=== PATIENT | male | born 1960 | race Caucasian/White ===

== ENCOUNTER 2020-06-14 07:25 | Day surgery (SDC) | payer OTHER ==
[~2020-06-14] VITALS: Ht 180.3 cm; Wt 139.1 kg
[2020-06-14] MEDS ORDERED: SODIUM CHLORIDE 0.9% 1,000 ML ONE (07:35)
[2020-06-14] MEDS ORDERED: SODIUM CHLORIDE 0.9% 1,000 ML IV ONE (09:30)
[2020-06-14] MEDS ORDERED: IOHEXOL 300 MG/ML 50 ML VIAL ONE ×2 (11:05→11:47)
[2020-06-14] MEDS ORDERED: LIDOCAINE/PF 1% 30 ML VIAL ONE (11:05)
[2020-06-14] MEDS ORDERED: SODIUM BICARBONATE 50 MEQ/50 ML VIAL ONE (11:05)
[2020-06-14] MEDS ORDERED: HEPARIN SODIUM 1000 UNITS/NS 1,000 ML ONE (11:05)
[2020-06-14] MEDS ORDERED: IOHEXOL 300 MG/ML 100 ML VIAL ONE ×2 (11:05→11:47)
[2020-06-14 11:20] VITALS: BP 130/69
[2020-06-14] MEDS ORDERED: FentaNYL CITRATE PF 100 MCG/2 ML VIAL ONE (11:25)
[2020-06-14] MEDS ORDERED: MIDAZOLAM HCL 2 MG/2 ML VIAL ONE (11:25)
[2020-06-14] MEDS ORDERED: ASPIRIN 325 MG TABLET ONE (11:39)
[2020-06-14] MEDS ORDERED: TICAGRELOR 90 MG TABLET ONE (11:39)
[2020-06-14] MEDS ORDERED: ASPIRIN 325 MG TABLET PO ONE (11:45)
[2020-06-14] MEDS ORDERED: HEPARIN SODIUM 1000 UNITS/NS 1,000 ML IARTER ONE (11:45)
[2020-06-14] MEDS ORDERED: LIDOCAINE 1% 30 ML/SOD BICARB 8.4% 4 ML SQ ONE (11:45)
[2020-06-14] MEDS ORDERED: IOHEXOL 300 MG/ML 100 ML VIAL IARTER ONE (11:45)
[2020-06-14] MEDS ORDERED: MIDAZOLAM HCL 2 MG/2 ML VIAL IVP ONE (11:45)
[2020-06-14] MEDS ORDERED: FentaNYL CITRATE PF 100 MCG/2 ML VIAL IVP ONE (11:45)
[2020-06-14] MEDS ORDERED: HEPARIN SODIUM,PORCINE 5,000 UNITS/ML VIAL IVP ONE (11:45)
[2020-06-14 12:20] VITALS: BP 140/72
[2020-06-14] MEDS ORDERED: TICAGRELOR 90 MG TABLET PO ONE (14:30)
== END 2020-06-14 17:19 | disposition home or self-care (01) ==
LOC: CATHLAB 07:25
PROVIDERS: ATTEND Internal Medicine Interventional Cardiology
DX: I25.10 Atherosclerotic heart disease of native coronary artery without angina pectoris (principal); E78.5 Hyperlipidemia, unspecified; I10 Essential (primary) hypertension; E66.01 Morbid (severe) obesity due to excess calories; E78.00 Pure hypercholesterolemia, unspecified; F17.210 Nicotine dependence, cigarettes, uncomplicated; Z90.49 Acquired absence of other specified parts of digestive tract; Z95.5 Presence of coronary angioplasty implant and graft; Z72.89 Other problems related to lifestyle; Z98.890 Other specified postprocedural states; Z79.82 Long term (current) use of aspirin; Z79.899 Other long term (current) drug therapy; I73.9 Peripheral vascular disease, unspecified
CPT/HCPCS: 93005; 93458; 99152; 99153; C1769; C1874; C1887; C9600; J1644; J2250; J3010; J3490 ×2; J7030; Q9967 ×2; 92920; 92928